=== PATIENT | female | born 1960 | race Caucasian/White ===

== ENCOUNTER → 2023-10-18 07:48 | Outpatient (REF) | payer OTHER, SELFPAY | LOC: MRI 07:48 | PROVIDERS: ATTENDING PHYSICIAN Student in an Organized Health Care Education/Training Program; FAMILY PHYSICIAN Family Medicine | DX: K76.89 Other specified diseases of liver (principal) | CPT/HCPCS: 74183; A9575 ==

== ENCOUNTER 2024-11-01 06:09 | Day surgery (SDC) | payer OTHER, SELFPAY ==
[2024-10-22 11:35] LABS: Hematocrit 42.5 % (37.0-47.0); Hemoglobin 14.5 g/dL (12.0-16.0); Mean Corp Hgb Conc. 34.1 g/dL (33.0-37.0); Mean Corpuscular Volume 92.2 fL (81.0-99.0); Platelet Count 135 10^3/uL (130-400); Red Cell Dist. Width 13.5 % (11.5-14.5)
[2024-10-22 11:48] LABS: Glycohemoglobin (HgbA1c) 4.8 % (4.0-5.6)
[2024-10-22 12:32] VITALS: BMI 26.1
--- NOTE | 2024-10-22 12:35 | CM ---
Demographics: lives alone, in apartment
Living situation:
Support Person Post Operatively: Brother in law
History of
VN: Yes, not currently on service
SNF:
Outpatient: [facility]
Has patient purchased required equipment: yes
PCP: Dr. Mahoney
Pharmacy: [facility]
Post Operative Discharge Plan: Home with VN, and then outpatient PT.
[2024-10-22 12:42] LABS: ALT (SGPT) 72 U/L (0-35); AST (SGOT) 64 U/L (14-36); Albumin 4.7 g/dl (3.5-5.0); Alkaline Phosphatase 133 U/L (38-126); Blood Urea Nitrogen 14 mg/dl (7-17); Calcium 9.4 mg/dl (8.4-10.2); Carbon Dioxide 27 mmol/L (22-30); Chloride 104 mmol/L (98-107); Estimated Creatinine Clearance 67 ml/min; Glucose 83 mg/dl (70-99); Potassium 4.6 mmol/L (3.5-5.1); Sodium 138 mmol/L (135-145); Total Protein 7.2 g/dl (6.3-8.2); eGFR > 60.00
[2024-10-22 12:49] VITALS: BMI 26.1
--- NOTE | 2024-10-26 14:48 | VNURNOTE ---
Patient is scheduled for an elective L TKA on 11/01- she is a same day patient with Dr Gordon. Spoke with patient prior to surgery. Introduced role of [facility] Liaison. Patient reports that she lives alone. She will have support at home post-op
There are 14 steps to enter.
She has arolling walker.
He had VN services after his prior THR but was not same day surgery.
PCP is
Discussed [facility] joint protocol and post surgical plans.
Reviewed that she will have VN services initially and will then start outpatient PT.
Patient selects [facility] for home care needs and [facility]. She is waiting for call back for start-date. Advised her to schedule Nov 04 or Nov 05.
Patient is in agreement with plan. Advised to bring RW with her day of surgery. Patient stated will be unable to do so, a different person is picking her up and they live a distance away. She is agreeable to have the RW easily available when she
arrives home. [facility].
Plan: [facility] per [facility] joint protocol 11/01 then outpt PT TBD
[2024-11-01] VITALS (14 sets, daily range): BP systolic 98–154; BP diastolic 60–94; PULSE 76; O2SAT 96; BMI 26.1
[2024-11-01] MEDS: TYLENOL 650 MG PO (08:39)
[2024-11-01] MEDS: CELEBREX 200 MG PO (08:39)
[2024-11-01] MEDS: NORMOSOL-R/PLASMALYTE-A 1000 IV (08:40)
--- NOTE | 2024-11-01 08:48 | W.DS.TRANS ---
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
-
Discharge Instructions:
Sleep Apnea Risk Low
Discharge Diagnosis/Procedures L SAJAN Gordon 11/01/24
Diet As tolerated
Activity With Walker
Driving Restrictions No driving
Bathing Restrictions OK to Shower
Other Services PT
Instructions:
Stand-Alone Forms: SDS Total Hip and Knee D/C
Changes to Home Medications: Yes
Discharge Medications:
DC Medications w/original date entered in [facility]
Centrum Silver Women 1 dose PO DAILY 10/21/24
hydroxyzine pamoate 50 mg capsule 50 mg PO HS 10/21/24
levothyroxine 50 mcg tablet 50 mcg PO HS 10/21/24
omeprazole magnesium 20 mg tablet,delayed release (Prilosec OTC) 20 mg PO HS 10/21/24
cefadroxil 500 mg capsule 500 mg PO BID #14 caps 10/22/24
celecoxib 200 mg capsule (Celebrex) 200 mg PO DAILY #14 caps 10/22/24
dexamethasone 4 mg tablet 4 mg PO BID Anti-inflammatory #7 tabs 10/22/24
gabapentin 300 mg capsule 300 mg PO HS neuropathic pain/sleep #10 caps 10/22/24
mupirocin 2 % topical ointment 1 applic intranasal BID #1 tube 10/22/24
ondansetron HCl 4 mg tablet 4 mg PO Q6H PRN nausea and vomiting #30 tabs 10/22/24
oxycodone 5 mg tablet 5 - 10 mg (1 - 2 x 5 mg) PO Q6H PRN moderate-severe pain #30 tabs 10/22/24
Saccharomyces boulardii 250 mg capsule (Florastor) 250 mg PO BID #1 cap 11/01/24
aspirin 325 mg tablet 325 mg PO DAILY blood clot prevention #1 tab 11/01/24
docusate sodium 100 mg capsule (Colace) 100 mg PO BID stool softner #1 cap 11/01/24
lisinopril 10 mg tablet 10 mg PO HS #0 tabs 11/01/24
magnesium hydroxide 400 mg/5 mL oral suspension (Milk of Magnesia) 30 ml PO HS PRN constipation #1 mL 11/01/24
sennosides 8.6 mg tablet (Senokot) 17.2 mg (2 x 8.6 mg) PO BID laxative #2 tabs 11/01/24
Home Medication Changes
cefadroxil 500 mg capsule 500 mg PO BID #14 caps 10/22/24
celecoxib 200 mg capsule (Celebrex) 200 mg PO DAILY #14 caps 10/22/24
dexamethasone 4 mg tablet 4 mg PO BID Anti-inflammatory #7 tabs 10/22/24
gabapentin 300 mg capsule 300 mg PO HS neuropathic pain/sleep #10 caps 10/22/24
mupirocin 2 % topical ointment 1 applic intranasal BID #1 tube 10/22/24
ondansetron HCl 4 mg tablet 4 mg PO Q6H PRN nausea and vomiting #30 tabs 10/22/24
oxycodone 5 mg tablet 5 - 10 mg (1 - 2 x 5 mg) PO Q6H PRN moderate-severe pain #30 tabs 10/22/24
Saccharomyces boulardii 250 mg capsule (Florastor) 250 mg PO BID #1 cap 11/01/24
aspirin 325 mg tablet 325 mg PO DAILY blood clot prevention #1 tab 11/01/24
docusate sodium 100 mg capsule (Colace) 100 mg PO BID stool softner #1 cap 11/01/24
lisinopril 10 mg tablet 10 mg PO HS #0 tabs 11/01/24
magnesium hydroxide 400 mg/5 mL oral suspension (Milk of Magnesia) 30 ml PO HS PRN constipation #1 mL 11/01/24
sennosides 8.6 mg tablet (Senokot) 17.2 mg (2 x 8.6 mg) PO BID laxative #2 tabs 11/01/24
Pending Results: No
[2024-11-01] MEDS: ROXICODONE 5 MG PO (14:05)
[2024-11-01] MEDS: ANCEF 5 IV (14:06)
[2024-11-01] MEDS: NORMOSOL-R/PLASMALYTE-A 250 IV (15:02)
== END 2024-11-01 15:44 | disposition home or self-care (01) ==
LOC: SDS 06:09
PROVIDERS: ATTENDING PHYSICIAN Specialist; FAMILY PHYSICIAN Internal Medicine
DX: M17.12 Unilateral primary osteoarthritis, left knee (principal); I10 Essential (primary) hypertension; K76.89 Other specified diseases of liver; F10.10 Alcohol abuse, uncomplicated; F19.10 Other psychoactive substance abuse, uncomplicated; Z72.0 Tobacco use; Z87.39 Personal history of other diseases of the musculoskeletal system and connective tissue
CPT/HCPCS: 27447; C1776; C1713; 36415; 73560; 80053; 83036; 85027; 87070; 93005; 97116; 97162